=== PATIENT | female | born 1975 | race Caucasian/White ===

== ENCOUNTER 2024-11-22 11:02 | Emergency (ER) | payer OTHER, SELFPAY ==
--- NOTE | ~2024-11-22 | XR_ITS ---
EXAMINATION: XR wrist LT min 3V DATE: 11/22/2024 11:32 INDICATION: Left wrist pain TECHNIQUE: Posteroanterior, ulnar deviation, oblique, and lateral views of the left wrist were obtain ed. COMPARISON: none FINDINGS: Alignment is normal. No fracture. Joint spaces are normal. No cortical erosions. Soft tissues are unr emarkable. IMPRESSION: 1. Negative left wrist radiographs. Reviewed, dictated and finalized at location A.
--- NOTE | 2024-11-22 11:09 | ED_ITS ---
HPI - Extremity Injury (Upper) General Chief Complaint: Extremity Problem,Nontraumatic Stated Complaint: left wrist hurts Time Seen by Provider: 11/22/24 11:08 Source: patient Mode of arrival: ambulatory Limitations: no limitations History of Present Illness HPI narrative: Patient is a 49-year-old female who presents with left wrist pain that started in 14 days ago. Patient was pushing on door when someone else to pushed on door from the other side. Pain increases at night and with use. Denies any numbness, tingling or weakness. Related Data Home Medications ?Medication ?Instructions ?Recorded ?Confirmed ?Last Taken ?Type dextroamphetamine-amphetamine 15 11/22/24 Unknown History mg tablet dextroamphetamine-amphetamine 30 11/22/24 Unknown History mg tablet progesterone micronized 100 mg mg 11/22/24 Unknown History capsule rosuvastatin 5 mg tablet mg 11/22/24 Unknown History testosterone injection 11/22/24 Unknown History venlafaxine 50 mg tablet mg 11/22/24 Unknown History Allergies Allergy/AdvReac Type Severity Reaction Status Date / Time No Known Allergies Allergy Verified 11/22/24 11:25 Review of Systems Review of Systems: All systems reviewed & are unremarkable except as noted in HPI and below Constitutional: Constitutional: Denies body ache(s), Denies fever(s), Denies headache(s), Denies malaise and Denies weakness Eyes: Eyes: Reports no additional eye complaints and Denies loss of vision ENT: Reports system reviewed and no additional complaints, except as documented, Denies otalgia, Denies headache(s), Denies nasal discharge, Denies sinus pain and Denies sore throat Cardiovascular: Cardiovascular: Reports no additional cardiovascular complaints, Denies chest pain, Denies irregular heart rhythm and Denies dyspnea Respiratory: Respiratory: Reports no additional respiratory complaints and Denies dyspnea Gastrointestinal: Gastrointestinal: Reports no additional gastrointestinal complaints, Denies abdominal pain, Denies melena, Denies hematochezia, Denies diarrhea, Denies nausea and Denies vomiting Musculoskeletal: Musculoskeletal: Reports no additional musculoskeletal complaints, Denies back pain, Denies myalgias and Reports arthralgias Integumentary/Breasts: Skin/Breast: Reports system reviewed and no additional complaints, except as docu, Denies pruritus and Denies rash Neurologic: Reports system reviewed and no additional complaints, except as documented, Denies headache(s), Denies loss of vision and Denies weakness Psychiatric: Psychiatric: Reports no additional psychiatric complaints PMFSH Comments At time of signature, agree with nursing past medical, surgical, social and family history. There is no relevant family history pertinent to the presenting complaint. Exam Const: General: cooperative, healthy appearing, comfortable, no acute distress and well nourished Nutritional Appearance: well nourished Orientation/consciousness: patient oriented x3 Limitations: no limitations HENMT: Head: normal to inspection, normocephalic and atraumatic Ears: external ears normal Face/Nose/Sinus: Normal external nose present, normal facial exam and face symmetric Face and sinus: normal facial exam and face symmetric Mouth: Yes lip normal Eyes: General: appearance normal, both eyes and all related structures Alignment and Position: alignment normal and position normal Eyelids: eyelids normal Pupils: Equal, round and reactive pupils present EOM: EOMs intact bilaterally Neck: Neck: normal visual inspection and full ROM Chest: Chest palpation & inspection: normal inspection of the chest Resp: Effort & Inspection: normal respiratory effort and able to speak in complete sentences Auscultation: clear to auscultation bilaterally Cardio: Rate: regular rate Rhythm: regular rhythm Heart sounds: S1 normal heart sound present and S2 normal heart sound present GI: Inspection: normal to inspection Skin: General skin exam: normal color and no rashes or lesions noted Neuro: General: patient oriented x3 and moves all extremities Cranial nerves: Yes Equal, round and reactive pupils present Speech: normal speech Gait exam (Neuro): Normal gait present Extrem: General: normal to inspection, full ROM and no edema Left upper extremity: wrist normal to inspection, tenderness of the distal radius, normal ROM and normal vascular exam; no swelling and no ecchymosis and hand normal to inspection, normal capillary refill, neuromotor exam normal Details: wrist extension normal, thumb opposition normal, thumb IP flexion normal, thumb ADduction normal and fingers 2-5 ABduction normal, neurosensory exam normal Details: radial nerve sensory function normal, ulnar nerve sensory function normal, median nerve sensory function normal and digital nerve sensory function normal, tendon exam normal Location: of all digits Details: extensor tendon, flexor digitorum profundus and flexor digitorum superficialis, vascular exam radial pulse present and normal capillary refill, normal ROM of fingers and no swelling; no tenderness and no ecchymosis Psych: Appearance: grossly normal and well kempt Mental Status: mental status grossly normal Speech and movement: Normal speech and movement present Affect: normal affect Attitude: cooperative Thought process: Normal thought process present Course Course Emergency Course: Patient is aware of diagnosis, understands and agrees to treatment plan. Anticipatory guidance given. Patient agrees to follow-up as directed and is aware of reasons to seek care at the emergency department. Portions of this record may have been created with voice recognition software Level of Care: Express Care Visit Vital Signs Vital signs: Vital Signs Temperature 37.1 C 11/22/24 11:25 Pulse Rate 110 H 11/22/24 11:25 Respiratory Rate 16 11/22/24 11:25 Blood Pressure 147/93 H 11/22/24 11:25 Pulse Oximetry 100 11/22/24 11:25 Temperature 37.1 C 11/22/24 11:25 Pulse Rate 84 11/22/24 12:35 Respiratory Rate 16 11/22/24 11:25 Blood Pressure 147/93 H 11/22/24 11:25 Pulse Oximetry 100 11/22/24 11:25 Reviewed MDM - Extremity Injury (Upper) MDM Narrative Medical decision making narrative: The L wrist is without obvious asymmetry or deformity when compared to the R w rist. NO surface trauma, open wounds, swelling or obvious deformity. No overlying erythema or warmth. slight tenderness on palpation to distal radius.Normal flexion/extension, ulnar/radial deviation. Motor/sensory function of ulnar, radial, median nerves intact. Ulnar and radial pulses intact. Serafin wrap applied Pt well hydrated appearing, in no respiratory distress, hemodynamically stable. Recommend supportive care. The patient is stable at time of discharge the clinical impression was discussed and the patient was given the opportunity to ask questions, which were addressed as completely as possible given the information available at present. Anticipatory guidance and return to care precautions were discussed and the importance of primary care follow-up was stressed and encouraged. The patient voiced understanding of the plan, indications to return, and the need for follow-up. Exam findings show no acute concerns or changes Patient is appropriate for outpatient treatment and follow-up. Differential Diagnosis Differential diagnosis: Likely sprain and strain of wrist, fracture of wrist and other (Tendinitis) Imaging Data Radiologist's impression: EXAMINATION: XR wrist LT min 3V DATE: 11/22/2024 11:32 INDICATION: Left wrist pain TECHNIQUE: Posteroanterior, ulnar deviation, oblique, and lateral views of the left wrist were obtained. COMPARISON: none FINDINGS: Alignment is normal. No fracture. Joint spaces are normal. No cortical erosions. Soft tissues are unremarkable. IMPRESSION: 1. Negative left wrist radiographs. Discharge Plan Discharge Clinical Impression: Left wrist tendonitis Patient Disposition: Home Condition: Stable Instructions: Tendinitis (ED) Additional Instructions: Xray showed no fracture. Minimize activities that aggravate the condition The RICE protocol. Follow the RICE protocol as soon as possible after your injury:. Ice should be immediately applied to keep the swelling down. It can be used for 20 to 30 minutes, three or four times daily. Do not apply ice directly to your skin. Compression dressings, bandages or serafin-wraps will immobilize and support your injured wrist. Elevate your Wrist above the level of your heart as often as possible during the first 48 hours. Medication: Nonsteroidal anti-inflammatory drugs (NSAIDs) such as ibuprofen and naproxen can help control pain and swelling. Because they improve function by both reducing swelling and controlling pain, they are a better option for mild sprains than narcotic pain medicines. Please schedule a follow-up visit with your personal physician for further evaluation and treatment within 1week OR If your symptoms persist, change or worsen significantly before you can contact your personal physician then please, without delay, go to the emergency department for further evaluation. Your blood pressure was elevated above 120/80 today at Urgent Care. This puts you above the threshold for follow up visit with a primary care provider. High blood pressure does not usually cause any symptoms, however it may lead to kidney failure, stroke, heart disease just to name a few if untreated . Many people are anxious when seeing a provider or nurse. As a result, you are not diagnosed with hypertension at this time unless your blood pressure is persistently high at two office visits at least one week apart. Some things that can help lower blood pressure are lifestyle modifications, such as light exercise, decreased salt in diet, and weight loss. It is important to follow up with a PCP about this within 1 week. Patient Language: Maori Prescriptions: No Action dextroamphetamine-amphetamine 30 mg tablet dextroamphetamine-amphetamine 15 mg tablet venlafaxine 50 mg tablet progesterone micronized 100 mg capsule rosuvastatin 5 mg tablet testosterone injection Follow-up/Referrals: Jose Maria Hernandez MD [Physician] - 2 Weeks (wrist pain) Noe Dorsey DO [Primary Care Provider] - 3 Days Time of Disposition: 12:28
[2024-11-22 11:25] VITALS: BP 147/93; PULSE 110; RESP 16; TEMP 37.1; O2SAT 100
[2024-11-22 12:35] VITALS: PULSE 84
== END 2024-11-22 12:35 | disposition home or self-care (01) ==
PROVIDERS: Emergency Provider Nurse Practitioner Family; PCP Internal Medicine
DX: M67.834 Other specified disorders of tendon, left wrist (principal); E78.00 Pure hypercholesterolemia, unspecified; F90.9 Attention-deficit hyperactivity disorder, unspecified type
CPT/HCPCS: 73110; 99203; G0463

== ENCOUNTER 2025-02-13 07:51 | Outpatient (CLI) | payer OTHER, MEDICAID, SELFPAY ==
--- NOTE | ~2025-02-13 | MR_ITS ---
EXAMINATION: MR wrist LT wo/w con DATE: 02/13/2025 09:09 INDICATION: Anterior and lateral left wrist pain post injury 3 months prior TECHNIQUE: Magnetic resonance imaging (MRI) of the left wrist was performed without intravenous contrast. Sequences performed include axial T1-weighted FSE, PD-weighted FS FSE, T2-weighted FS FSE, T1-weighted FS FSE, coronal T2-weighted FS FSE, T1-weighted FSE, T1-weighted FS FSE, sagittal T2-weighted FS FSE, T1- weighted FSE, T1-weighted FS FSE and postcontrast axial, sagittal and coronal T1-weighted FS FSE. COMPARISON: None FINDINGS: Intrinsic ligaments: The scapholunate and lunotriquetral ligaments are normal. Triangular fibrocartilage complex (TFCC): The triangular fibrocartilage including its foveal and styloid attachments as well as the dorsal and volar radioulnar ligaments are normal. The ulnar collateral ligament, ulnotriquetral ligament and meniscal homologue are normal. The extensor carpi ulnaris tendon sheath is normal. Extensor wrist: De Quervain's tenosynovitis with prominent fluid and enhancing synovitis centered along the tendon sheath of the fourth dorsal compartment. Moderate tendinopathy with prominent longitudinal split tearing of the abductor pollicis longus tendon beginning at the level of the radial styloid process and extending to the distal insertion. Fusiform thickening and minimal increased signal consistent with mild tendinopathy without discrete tear of the extensor carpi ulnaris tendon centered at the level of the tip of the ulnar styloid process. Remaining extensor tendons of the wrist are normal. Flexor wrist: The flexor tendons of the wrist are normal. No abnormality in the carpal tunnel with normal median nerve. Guyon's canal: Guyon's canal including the ulnar nerve and artery are normal. Bones/other: Normal marrow signal. No fracture, erosions, avascular necrosis or abnormal marrow replacing process. Joint spaces are normal with no focal cartilage defects appreciated. Siphon the enhancing tenosynovitis, no other abnormal enhancing lesions identified. IMPRESSION: 1. Prominent the cord maintains tenosynovitis along with moderate tendinopathy and prominent longitudinal split tearing of the abductor pollicis longus tendon. 2. Mild tendinopathy without discrete tear of the extensor carpi ulnaris tendon. Reviewed, dictated and finalized at location A. PLATER IMPRESSION: 1. Prominent the cord maintains tenosynovitis along with moderate tendinopathy and prominent longitudinal split tearing of the abductor pollicis longus tendon . 2. Mild tendinopathy without discrete tear of the extensor carpi ulnaris tendon .
--- OUTSIDE RECORDS SUMMARY | 2025-02-13 07:56 | XMS_ITS | Encounter Summary ---
Author Organization [facility] Address [address] [place] [address] Care Team Providers Care Boathouse Keeper Name Role Phone Octavio Jacobs DO Primary Care Provider [phone] Encounter Details Date Type Department Care Team (Late st Contact Info) Description 05/04/2016 Abstract [facility] [address] [address] [place] [id number] [facility] [address] [place] [address] Social History Tobacco Use Types Packs/Day Years Used Date Smoking Tobacco: Never Alcohol Use Standard Drinks/Week Comments Yes 0 (1 standard drink = 0.6 oz pur e alcohol) occasional use Comments Unknown Sex and Gender Information Value Date Recorded Sex Assigned at Not on file Legal Sex Female 4:46 AM COLOR TELEVISION CONSOLE MONITOR Gender Identity Not on file Sexual Orientation Not on file documented as of this encounter Plan of Treatment Not on file documented as of this encounter Visit Diagnoses Not on filedocumented in this encounter Additional Health Concerns Infection Onset Date Last Indicated Resolved Time R/O COVID-19 02/23/2020 02/23/2020 02/25/2020 1:45 PM COLOR TELEVISION CONSOLE MONITOR COVID-19 02/23/2020 02/23/2020 03/24/2020 1:18 AM COLOR TELEVISION CONSOLE MONITOR R/O COVID-19 04/10/2021 04/10/2021 04/10/2021 7:17 PM COLOR TELEVISION CONSOLE MONITOR documented as of this encounter Care Teams Boathouse Keeper Relationship Specialty Start Date End Date Octavio Jacobs DO PCP - General Family Practice 05/04/16 documented as of this encounter
--- OUTSIDE RECORDS SUMMARY | 2025-02-13 07:56 | XMS_ITS | Clinical Summary ---
Author Organization [facility] Address [address] [facility] [address] [place] [address] Phone Care Team Providers Care Radiology Technician Name Role Phone Octavio Jacobs Primary Care Provider [phone] Allergies Active Allergy Reactions Criticality Noted Date Comments Latex Rash Low 05/04/2016 Medications metoprolol tartrate (LOPRESSOR) 25 mg tablet Take 25 mg by mouth daily. Active escitalopram oxalate (LEXAPRO) 10 mg tablet Take 20 mg by mouth daily. Active ketorolac tromethamine (TORADOL) 10 mg tablet Take 1 Tablet (10 mg) by mouth every 6 hours as needed for Pain. 12 Tablet 1 Active diazePAM (VALIUM) 5 mg tabletIndications :Spinal stenosis, unspecified spinal region Take 1 Tablet (5 mg) by mouth every 8 hours as needed for Spasm. 10 Tablet 1 Active amphetamine-dextr oamphetamine (ADDERALL XR) 20 mg Extended Release 24 hour capsule Take 1 Capsule (20 mg) by mouth daily in the morning. 30 Capsule 03/14/2023 2:04 PM AUDIT SPEC 3 Active Active Problems Problem Noted Date Diagnosed Date Benign hypertension 05/16/2016 BHUMIKA on CPAP 05/16/2016 Anxiety 05/16/2016 Gastroesophageal reflux disease without esophagi tis 05/16/2016 Immunizations Immunization Administration Dates Next Due Influenza Seasonal Unspecified Formulation IM Family History Medical History Relation Name Comments Heart Disease Father Cancer Mother Heart Disease Mother Relation Name Status Comments Father Alive Mother Alive Social History Tobacco Use Types Packs/Day Years Used Date Smoking Tobacco: Never Alcohol Use Standard Drinks/Week Comments Yes 0 (1 standard drink = 0.6 oz pur e alcohol) occasional use Comments No Sex and Gender Information Value Date Recorded Sex Assigned at Not on file Legal Sex Female 4:46 AM AUDIT SPEC Gender Identity Not on file Sexual Orientation Not on file Last Filed Vital Signs Vital Sign Reading Time Taken Comments Blood Pressure 140/92 08/05/2020 8:30 PM CDT Pulse 83 08/05/2020 8:30 PM CDT Temperature 36.1 C (96.9 F) 08/05/2020 7:04 PM CDT Respiratory Rate 15 08/05/2020 7:04 PM CDT Oxygen Saturation 100% 08/05/2020 8:30 PM CDT Inhaled Oxygen Concentration - - Weight 101.2 kg (223 lb) 08/05/2020 7:04 PM CDT Height 167.6 cm (5' 6) 08/05/2020 7:04 PM CDT Body Mass Index 35.99 08/05/2020 7:04 PM CDT Plan of Treatment Health Maintenance Due Date Last Done Comments DTAP/TDAP/TD VACCINES (1 - Tdap) 1996 HEPATITIS B VACCINES (1 of 3 - 19+ 3-dose series) 1996 HPV/Cotest (21-29) 1998 CERVICAL CANCER SCREENING 09/18/2007 HPV/Cotest (30-65) 09/18/2007 PAP SMEAR 09/18/2007 BREAST CANCER SCREENING 2017 COLORECTAL SCREENING 2022 Colorectal Cancer Screening 2022 FIT-DNA Q 3 years 2022 FIT/FOBT Q 1 year 2022 Flex Sig/CT Colonography Q 5 years 2022 Preventative Visit- Commercial 04/15/2024 12/18/2019 , 11/21/2016 INFLUENZA VACCINE (#1) 2024 02/06/2021, 2019 Medical Devices Implanted Type Area Library Information Technician Device Identifier Shelf Expiration Date Model / Serial / Lot Seamguard Endogia 60 Prpl [id number] - [id number] Implanted:Qty : 2 on 05/16/2016 by Grant Aguilar MD at [facility] Biological N/A: Abdomen [employer] 02/12/2019 [id number] / / [id number] Seamguard Endogia 60 Blck [id number] - [id number] Implanted:Qty : 2 on 05/16/2016 by Grant Aguilar MD at [facility] Biological N/A: Abdomen [employer] 12/13/2018 [id number] / / [id number] Mirena Description:placed 2015 Insurance RX [employer] (INTERNAL) [facility] Internal Plans RX [employer] Express Advance Directives For more information, please contact: [phone] * Full Code (Latest Code Status on File) Date Activated Date Inactivated Comments 05/16/2016 9:43 AM 05/17/2016 3:00 PM * Full Code Date Activated Date Inactivated Comments 05/16/2016 5:45 AM 05/16/2016 9:43 AM * Full Code Date Activated Date Inactivated Comments 05/04/2016 5:58 AM 05/04/2016 9:53 AM Care Teams Radiology Technician Relationship Specialty Start Date End Date Octavio Jacobs DO PCP - General Family Practice 05/04/16
--- OUTSIDE RECORDS SUMMARY | 2025-02-13 07:56 | XMS_ITS | Encounter Summary ---
Author Organization [facility] Address [address] [place] [address] Care Team Providers Care Operations Lieutenant Name Role Phone Octavio Jacobs Primary Care Provider [phone] Reason for Visit * Reason Onset Date Comments Follow Up 05/07/2016 EGD biopsy done on 05/04/16 positive for H pylori. RX from Dr. Aguilar for 10 day course of Omeprazole 20 mg twice daily, Flagyl 500 mg three times daily and Clarithromycin 500 mg twice daily. Spoke with pt to discuss results and treatment . Denies allergies. Pharmacy is [facility] [phone]. RX called to [facility] Encounter Details Date Type Department Care Team (Late st Contact Info) Description 05/07/2016 Telephone [facility] [address] [address] Jill Pritchard, TYSHAWN Follow Up (EGD biopsy done on 05/04/16 positive for H pylori. RX from Dr. Aguilar for 10 day course of Omeprazole 20 mg twice daily, Flagyl 500 mg three times daily and Clarithromycin 500 mg twice daily. Spoke with pt to discuss results and treatment . Denies allergies. Pharmacy is [facility] [phone]. RX called to [facility]) Social History Tobacco Use Types Packs/Day Years Used Date Smoking Tobacco: Never Alcohol Use Standard Drinks/Week Comments Yes 0 (1 standard drink = 0.6 oz pur e alcohol) occasional use Comments Unknown Sex and Gender Information Value Date Recorded Sex Assigned at Not on file Legal Sex Female 4:46 AM ADULT CAREGIVER Gender Identity Not on file Sexual Orientation Not on file documented as of this encounter Plan of Treatment Not on file documented as of this encounter Visit Diagnoses Not on filedocumented in this encounter Additional Health Concerns Infection Onset Date Last Indicated Resolved Time R/O COVID-19 02/23/2020 02/23/2020 02/25/2020 1:45 PM ADULT CAREGIVER COVID-19 02/23/2020 02/23/2020 03/24/2020 1:18 AM ADULT CAREGIVER R/O COVID-19 04/10/2021 04/10/2021 04/10/2021 7:17 PM ADULT CAREGIVER documented as of this encounter Care Teams Operations Lieutenant Relationship Specialty Start Date End Date Octavio Jacobs DO PCP - General Family Practice 05/04/16 documented as of this encounter
--- OUTSIDE RECORDS SUMMARY | 2025-02-13 07:56 | XMS_ITS | Clinical Summary ---
Author Organization [address] Address [address] [place] [id number] Care Team Providers Care Retail Customer Service Representative Name Role Phone RaymonNoe sepulveda DO Primary Care Provider Allergies Active Allergy Reactions Criticality Noted Date Comments Latex Rash Medium 05/04/2016 Had rash on contact with gloves as child Medications sertraline (ZOLOFT) 100 mg tabletIndications :Anxiety TAKE 1 TABLET(100 MG) BY MOUTH DAILY 90 tablet 3 Active metoprolol XL (TOPROL-XL) 50 mg extended release tabletIndications :Benign hypertension TAKE 1 TABLET(50 MG) BY MOUTH DAILY 90 tablet 3 Active cholecalciferol (VITAMIN D-3) 1,000 unit capsule 1 capsule (1,000 Units total) daily Active dextroamphetamine -amphetamine (ADDERALL) 15 mg tablet 0 4 Active dextroamphetamine -amphetamine (ADDERALL) 30 mg tablet 0 4 Active omega 6-qnq-aut-fish oil (Fish OiL) 1,000 (120-180) mg capsule 1 capsule (1,000 mg total) daily Active Hospital, Clinic, or Other Facility Administered Medication Ordered Dose Route Frequency Start Date End Date Status levonorgestreL (MIRENA) 21 mcg/24 hours (8 yrs) 52 mg IUDIndications:Preg harpreet Contraception intrauterine Continuous (implanted device) 09/26/2022 8 Active Active Problems Problem Noted Date Diagnosed Date Annual physical exam 09/27/2022 Assessment & Plan (09/27/2022 1:43 PM CDT): Reviewed past and current medical history, surgical history, social history, family history, current medications, and allergies. A ROS and PE were performed. Medications and labs were ordered and referrals were made. Discussed screening colonoscopy, well woman exam/cervical cancer screening, screening mammogram, monthly breast self- exams, bone density testing, and recommended immunizations. Patient will follow-up in 4 weeks for further evaluation and management or sooner if needed. Chronic insomnia 09/27/2022 Assessment & Plan (09/28/2022 2:10 PM CDT): Chronic, stable, uncontrolled-discussed pharmacological management versus OTC meds, continued on melatonin. SOB (shortness of breath) 09/27/2022 Assessment & Plan (09/28/2022 2:13 PM CDT): Chronicity and stability unknown-referral made Cardiology for further evaluation and management of shortness of breath and perceived poor endurance. Vitamin D deficiency 09/27/2022 Assessment & Plan (09/28/2022 2:13 PM CDT): Chronicity and stability unknown-continued on vitamin D3 2000 IU daily with a meal. Ordered vitamin-D 25 OH. Anemia, unspecified 09/27/2022 Assessment & Plan (09/28/2022 2:07 PM CDT): Chronic, stable-informed multivitamin with iron. Will monitor periodically. Metrorrhagia 06/14/2022 Assessment & Plan (09/28/2022 2:12 PM CDT): Chronic, improved with IUD, with recent removal and reinsertion on 09/26/2022-encouraged follow-up with food court team member as recommended. Assessment & Plan (06/14/2022 2:48 PM SUPERINTENDENT PIER): Chronicity and stability unknown-ordered FSH, LH, estradiol level, & TSH level. Referral made to gynecology for well-woman exam. Lipid screening 06/14/2022 Assessment & Plan (06/14/2022 2:41 PM SUPERINTENDENT PIER): Ordered lipid panel. Bariatric surgery status 06/14/2022 Assessment & Plan (09/28/2022 2:08 PM CDT): Reviewed prior lab work, zinc was omitted due to not enough blood taken for testing. Assessment & Plan (06/14/2022 2:45 PM SUPERINTENDENT PIER): Ordered CBC, ferritin level, iron profile, B12 level, folate, copper, zinc, CMP, hemoglobin A1c, vitamin-D, PTH, and lipid panel. Encounter for well woman exa m with routine gynecological exam 06/14/2022 Assessment & Plan (06/14/2022 2:42 PM SUPERINTENDENT PIER): Referral made per patient request to food court team member for well-woman exam. Encounter for screening mamm ogram for malignant neoplasm of breast 06/14/2022 Assessment & Plan (06/14/2022 2:42 PM SUPERINTENDENT PIER): Ordered screening mammogram. Need for vaccination 06/14/2022 Assessment & Plan (06/14/2022 2:40 PM SUPERINTENDENT PIER): Influenza vaccine given. Current mild episode of emile r depressive disorder without prior episode 06/14/2022 Assessment & Plan (09/28/2022 2:11 PM CDT): Chronic, controlled per patient report, PHQ-9=8-continued on sertraline, declined increase in dose. Informed suicidal ideation or thoughts of harming self or others, to go to ER and/or call [phone] for assistance. Assessment & Plan (06/14/2022 2:48 PM SUPERINTENDENT PIER): Chronic, uncontrolled on medication, however has been taking half recommended dose for several months due to limited supply, increased to full tablet 1 week ago-continued on sertraline 100 mg daily. Recommended follow-up in 4 weeks. PHQ- 9=14. Anxiety 05/16/2016 Assessment & Plan (09/28/2022 2:11 PM CDT): Chronic, stable, controlled per patient report with medication, SEVERO-7=15-continued on sertraline, declined increase in dose. Informed suicidal ideation or thoughts of harming self or others, to go to ER and/or call [phone] for assistance. Assessment & Plan (06/14/2022 2:46 PM SUPERINTENDENT PIER): Chronic, uncontrolled on medication, however has been taking half recommended dose for several months due to limited supply, increased to full tablet 1 week ago-continued on sertraline 100 mg daily. Recommended follow-up in 4 weeks. SEVERO--9=17. Assessment & Plan (03/05/2018 2:26 AM SUPERINTENDENT PIER): Continue home sertraline Benign hypertension 05/16/2016 Assessment & Plan (09/28/2022 2:08 PM CDT): Chronic, stable, controlled with medication-continued on metoprolol XL. Assessment & Plan (06/14/2022 2:44 PM SUPERINTENDENT PIER): Chronic, with elevated systolic (140), admits to being nervous establishing with a new provider-continued on metoprolol XL. Ordered CMP. Recommended follow-up in 4 weeks. Assessment & Plan (03/05/2018 2:22 AM SUPERINTENDENT PIER): BP 130s/70s on admission -Continue home Metoprolol XL 50 mg qday -If BP rises then would switch Meto to Amlodipine or HCTZ given BB are not first line anti-hypertensives and she does not have known CAD BHUMIKA on CPAP 05/16/2016 Assessment & Plan (09/28/2022 2:12 PM CDT): Chronicity and stability unknown, has not worn CPAP i n year since losing weight-offered referral to sleep management, not interested at this time. Assessment & Plan (03/05/2018 2:22 AM SUPERINTENDENT PIER): Prior history before gastric sleeve operation -BHUMIKA screening Resolved Problems Problem Noted Date Diagnosed Date Resolved Date Encounter to establish care 06/14/2022 09/27/2022 Assessment & Plan (06/14/2022 2:42 PM SUPERINTENDENT PIER): Reviewed past and current medical history, surgical history, social history, family history, current medications, and allergies. A ROS and PE were performed. Medications were refilled, labs were ordered, and referrals were made. Discussed screening colonoscopy, well woman exam/cervical cancer screening, screening mammogram, monthly breast self-exams, and recommended immunizations. Patient will follow-up in 4 weeks for annual exam, sooner if needed. Hypomagnesemia 06/14/2022 09/28/2022 Assessment & Plan (06/14/2022 2:41 PM SUPERINTENDENT PIER): Chronicity and stability unknown-ordered magnesium level. Pancreatitis 03/05/2018 06/14/2022 Assessment & Plan (03/05/2018 2:25 AM SUPERINTENDENT PIER): Presenting with 5 days of epigastric pain that radiates to her back, nausea, and vomiting consistent with pancreatitis. Lipase was normal at 29, but clinical history/exam is consistent with mild case -Unable to tolerate PO intake -RUQ with gallbladder sludge and large gallstone, but no acute cholecystitis -CT abdomen/pelvis with pancreatitis and cholelithiasis, no biliary dilatation -LFTs within normal limits -Pancreatitic etiology is likely secondary to gallstones. No history of alcohol use or recent medication changes -Would benefit from outpatient general surgery follow-up for elective cholecystectomy -IV fluids, pain control and anti-emetics for now -NPO and ADAT -Scheduled Tylenol, oxycodone and morphine PRN for pain Gastroesophageal reflux dise ase without esophagitis 05/16/2016 06/14/2022 Encounters Date Type Department Care Team Description 01/19/2025 1:20 PM CDT - 01/19/2025 11:59 PM CDT Hospital Encounter [address] [address] Pain in left wrist Discharge Disposition: Discharge to home or self care from Last 3 Months Immunizations Immunization Administration Dates Next Due Influenza, Quadrivalent, Spl it, Preservative Free, Intramuscular 06/14/2022,12/18/2019 Influenza, Trivalent, IM (MDV) 02/06/2021 Influenza, Trivalent, Preser vative Free, Intramuscular 01/23/2017 Pfizer SARS-CoV-2 Monovalent Vaccination (12+ Yrs) PURPLE 02/06/2021,05/25/2020,05/05/2020 Tdap 08/14/2019 Surgical History Surgery Date Site/Laterality Comments BARIATRIC SURGERY 04/15/2014 - 04/14/2015 N/A gastric sleeve INDUCED Medical History Medical History Date Comments Hypertension Obesity Depression Pancreatitis 03/05/2018 Gastroesophageal reflux disease without esophagi tis 05/16/2016 Abnormal Pap smear of cervix HPV (human papilloma virus) infection Hypomagnesemia 06/14/2022 Family History Medical History Relation Name Comments Coronary artery disease Father Heart disease Father Hypertension Father Coronary artery disease Mother Heart attack Mother Heart disease Mother Hypertension Mother Throat cancer Mother Breast cancer Neg Hx Ovarian cancer Neg Hx Thyroid cancer Neg Hx Uterine cancer Neg Hx Relation Name Status Comments Father Alive Mother Alive Social History Tobacco Use Types Packs/Day Years Used Date Smoking Tobacco: Never Smokeless Tobacco: Never Tobacco Cessation:Counseling Given: Not Answered Alcohol Use Standard Drinks/Week Comments No 0 (1 standard drink = 0.6 oz pur e alcohol) AUDIT-C Answer Date Recorded Q1: How often do you have a drink containing alc ohol? Never 06/14/2022 Average Number of Drinks Not on file 023 Frequency of Binge Drinking Not on file 05/2022 PHQ-2 Answer Date Recorded PHQ-2 Total Score (If total score is 3 or more points, staff should administer the PHQ-9) 0 09/27/2022 Comments No Sex and Gender Information Value Date Recorded Sex Assigned at Not on file Legal Sex Female 7:34 PM SUPERINTENDENT PIER Gender Identity Female 06/27/2022 11:49 AM CDT Sexual Orientation Straight 06/27/2022 11 :49 AM CDT Obstetrics History Para Term AB IAB SAB Ectopic Multiple Livin g Live Births 1 0 0 1 Date Outcome GA Total Labor Labor/2nd/3rd Weight Sex Type Anes PTL Justine A1 A5 Name Clin AB Last Filed Vital Signs Vital Sign Reading Time Taken Comments Blood Pressure 122/83 06/03/2024 7:43 PM SUPERINTENDENT PIER Pulse 87 06/03/2024 7:43 PM SUPERINTENDENT PIER Temperature 36.8 C (98.2 F) 06/03/2024 7:43 PM SUPERINTENDENT PIER Respiratory Rate 20 06/03/2024 7:43 PM SUPERINTENDENT PIER Oxygen Saturation 99% 06/03/2024 7:43 PM SUPERINTENDENT PIER Inhaled Oxygen Concentration - - Weight 99.3 kg (218 lb 14.4 oz) 09/27/2022 1:15 PM CDT Height 169 cm (5' 6.54) 09/27/2022 1:15 PM CDT Body Mass Index 34.77 09/27/2022 1:15 PM CDT Plan of Treatment Health Maintenance Due Date Last Done Comments Colon Cancer Screening-Colonoscopy 1975 Hepatitis C Screening 1975 Hepatitis B Screening 09/18/1995 Breast Cancer Screening-Mammogram 09/08/2023 09/07/2022 Depression Screening 09/28/2023 09/27/2022, 09/27/2022, 06/14/2022, Additional history exists Regular Well Visit/Exam 18-64 09/28/2023 09/27/2022, 09/12/2022, 12/18/2019, Additional history exists Covid-19 Vaccine ( season) 2024 02/06/2021, 05/25/2020, 05/05/2020 Influenza Vaccine (#1) 2024 3, 02/06/2021, 12/18/2019, Additional history exists Cervical Cancer Screening 09/13/20272022, 12/18/2019, 11/21/2016 DTaP/Tdap/Td Vaccine (2 - Td or Tdap) 08/13/2029 08/14/2019 Pneumococcal vaccine <65 Aged Out No longer eligible based on patient's age to complete this topic Procedures Procedure Name Priority Date/Time Associated Diagnosis Comments US UPPER EXTREMITY LEFT LIMITED Schedule Routine, Read Routine (OP Routine) 01/19/2025 1:52 PM CDT Pain in left wrist PAP AND HIGH RISK HPV, REFLEX TO GENOTYPING Routine 09/12/2022 8:59 AM CDT Well woman exam SCREENING MAMMOGRAM BILATERAL W RAMSEY Schedule Routine, Read Routine (OP Routine) 09/07/2022 8:14 AM CDT Screening mammogram, encounter for from Last 3 Months or Most Recently Relevant to Health Maintenance Results * US Upper Extremity Left Limited (01/19/2025 1:52 PM CDT) Anatomical Region Laterality Modality Upper Extremities Left Ultrasound 01/22/2025 11:1 4 AM CDT Narrative 01/22/2025 11:17 AM CDT EXAM DESCRIPTION: US UPPER EXTREMITY LEFT LIMITED REASON FOR STUDY: Pain in left wrist after injury 2 weeks ago, possible ruptured ganglion cyst. TECHNIQUE: A Dynamic assessment was performed of the left wrist by the butcher's assistant, with selected grayscale and color Doppler images acquired and recorded in PACS. COMPARISON: None. FINDINGS: If the area of interest corresponding to the area of palpable abnormality there is an ovoid mildly complex mass, this was not measured by the butcher's assistant. On retrospective review this is measured at approximately 2.1 x 0.8 cm by 1.6 cm. Peripherally there is some areas where this is anechoic, centrally this is relatively isoechoic. The through properties are difficult to assess due to location. This mass is just deep to the skin surface by approximately 1.5 mm. There is peripheral vascular flow with a least 1 speckled vascular flow seen within the substance of this collection on image 3 of 11 but question whether this may be artifactual. Spectral tracing was not performed. There also appears to be associated fluid along the tendon sheath on images 7 through 10. IMPRESSION: 1. Complex mass in the area of interest corresponding to the area of palpable abnormality. This is nonspecific, may be a hematoma. There is some peripheral vascular flow but question whether this may be artifactual. If further assessment were needed, could consider a MRI with contrast. 2. Fluid along the tendon sheath of the wrist. THIS IS AN ELECTRONICALLY VERIFIED FINAL REPORT 01/22/2025 11:17 AM - Electronically signed by Eugenio Smith M.D. T: Report ID: [id number] Reading Location: [id number] Procedure Note Eugenio Smith MD - 01/22/2025 EXAM DESCRIPTION: US UPPER EXTREMITY LEFT LIMITED REASON FOR STUDY: Pain in left wrist after injury 2 weeks ago, possible ruptured ganglion cyst. TECHNIQUE: A Dynamic assessment was performed of the left wrist by the butcher's assistant, with selected grayscale and color Doppler images acquired and recorded in PACS. COMPARISON: None. FINDINGS: If the area of interest corresponding to the area of palpable abnormality there is an ovoid mildly complex mass, this was not measuredby the butcher's assistant. On retrospective review this is measured atapproximately 2.1 x 0.8 cm by 1.6 cm. Peripherally there is some areas where this is anechoic, centrally this is relatively isoechoic. The through propertiesare difficult to assess due to location. This mass is just deep to the skin surface by approximately 1.5 mm. There is peripheral vascular flow with a least 1 speckled vascular flow seen within the substance of thiscollection on image 3 of 11 but question whether this may be artifactual. Spectraltracing was not performed. There also appears to be associated fluid along thetendon sheath on images 7 through 10. IMPRESSION: 1. Complex mass in the area of interest corresponding to the area of palpable abnormality. This is nonspecific, may be a hematoma. There issome peripheral vascular flow but question whether this may be artifactual. If further assessment were needed, could consider a MRI with contrast. 2. Fluid along the tendon sheath of the wrist. THIS IS AN ELECTRONICALLY VERIFIED FINAL REPORT 01/22/2025 11:17 AM - Electronically signed by Eugenio Smith M.D. T: Report ID: [id number] Reading Location: [place] [address] us Yenny Asencio HEALTH ASSISTANT IMG US PROCEDURES Final Resu lt * Pap and High Risk HPV, reflex to Genotyping (09/12/2022 8:59 AM CDT) Thin prep (Pap test) 09/12/2022 8:59 AM CDT 09/12/2022 8:59 AM CDT Narrative PATHOLOGY [facility] - 09/14/2022 2:53 PM CDT [facility] Department of Pathology [address] [place] [address] Final Report with Addendum Note to Patients: This report may contain a detailed description of human tissue sent by a health care provider to the laboratory for pathologic evaluation. The content of this report is essential for diagnosis and may provide important critical findings. This information may be unfamiliar to patients to review without a medical professional present. It is advised that the patient review this report in the presence of a health care provider who can answer questions and explain the details. Patient Name: PAMELA TOLBERT Address: [address] [place] [address] Gender: F : 1975 (Age: 46) Service: Location: N : [id number] [facility] #: [id number] Patient Type: [facility] SPECIMEN Taken: 09/12/2022 Received: 09/12/2022 Accessioned:: 09/13/2022 Reported: 09/14/2022 Physician(s): Vicky Kauffman M.D. [facility] Diagnosis: SOURCE OF SPECIMEN SCREENING THIN PREP IMAGED PAP w/ HPV: STATEMENT OF ADEQUACY - Satisfactory for evaluation; endocervical/transformation zone component present GENERAL CATEGORIZATION: - Negative for intraepithelial lesion or malignancy BREEZY Hicks(ASCP) Report Electronically Reviewed and Signed Out By REBECA HicksASC) 09/14/2022 14:53:24Addenda: HPV Test Interpretation NEGATIVE for types 16, 18, 31, 33, 35, 39, 45, 51, 52, 56, 58, 59, 66 and 68. Test performed utilizing Gen-Probe Aptima assay. BREEZY Connor(ASCP)Report Electronically Reviewed and Signed Out By REBECA ConnorASC) 09/14/2022 10:09:34 Specimen(s) Received: A: SCREENING THIN PREP IMAGED PAP w/ HPV Clinical History: Last Menstrual Period: 08/31/22 The Pap test is a screening test used to aid in the detection of cervical cancer and its precursors. It should not be the sole means by which malignant and premalignant lesions are diagnosed. Both false negative and false positive results may occur. It also has poor sensitivity for the detection of endometrial lesions and should not be used to evaluate suspected endometrial abnormalities. For these reasons it is most important to obtain Pap tests at regular intervals. The performance characteristics of some immunohistochemical stains, fluorescence in-situ hybridization tests and immunophenotyping by flow cytometry cited in this report (if any) were determined by the Surgical Pathology Department at [facility] as part of an ongoing quality assurance assistant program and in compliance with federally mandated regulations drawn from the Clinical Laboratory Improvement Act of 1988 (CLIA '88). Some of these tests rely on the use of analyte specific reagents and are subject to specific labeling requirements by the US Food and Drug Administration. Such diagnostic tests may only be performed in a facility that is certified by the Department of Health and Human Services as a high complexity laboratory under CLIA '88. The FDA has determined that such clearance or approval is not necessary. This test is used for clinical purposes. It should not be regarded as investigational or for research. Nevertheless, federal rules concerning the medical use of analyte specific reagents require that the following disclaimer be attached to the report: This test was developed and its performance characteristics determined by the Surgical Pathology Department [facility]. It has not been cleared or approved by the U. S. Food and Drug Administration. Vicky Kauffman MD LAB CYTOLOGY ORDERABLES F inal Result PATHOLOGY [facility] * Screening Mammogram Bilateral W Ramsey (09/07/2022 8:14 AM CDT) Anatomical Region Laterality Modality Breast Bilateral Mammography 09/07/2022 8:18 AM CDT Impressions 09/07/2022 8:18 AM CDT There is no mammographic evidence of malignancy. A 1 year screening mammogram is recommended. BI-RADS: 1 - Negative. The patient has been or will be contacted. The patient will be entered into a reminder system with a target due date of 1 year for her next mammogram. Electronically signed by: Mandy Thomas M.D. Narrative 09/07/2022 8:18 AM CDT EXAMINATION: SCREENING MAMMOGRAM BILATERAL W RAMSEY ORDERING HEALTHCARE PROVIDER: SELF SCREENING MAMMOGRAM HISTORY: Routine screening mammography. COMPARISON: Baseline study TECHNIQUE: CC and MLO views of the bilateral breasts were obtained with digital technique using breast tomosynthesis with C view. Computer aided detection was utilized. FINDINGS: DENSITY: There are scattered fibroglandular elements in the bilateral breasts. BREASTS: There are no suspicious masses, suspicious calcifications, or other suspicious findings in either breast. There has been no suspicious interval change. us Self Screening Mammogram IMG MAMMO PROCEDURES Fi nal Result from Last 3 Months or Most Recently Relevant to Health Maintenance Insurance [facility] [employer] Address: [facility] [id number] [place] [address] Advance Directives For more information, please contact: [phone] * Full Code (Latest Code Status on File) Date Activated Date Inactivated Comments 03/05/2018 2:09 AM 03/05/2018 10:20 PM Care Teams Retail Customer Service Representative Relationship Specialty Start Date End Date Noe Dorsey [address] [facility] [place] [address] PCP - General Internal Medicine 01/12/25
--- OUTSIDE RECORDS SUMMARY | 2025-02-13 07:56 | XMS_ITS | Encounter Summary ---
Author Organization [facility] Address [address] [place] [address] Care Team Providers Care Actuarial Director Name Role Phone Octavio Jacobs DO Primary Care Provider [phone] Encounter Details Date Type Department Care Team (Late st Contact Info) Description 05/25/1999 Outpatient Historical [facility] Kem Prakash Social History Tobacco Use Types Packs/Day Years Used Date Smoking Tobacco: Never Assessed Comments Unknown Sex and Gender Information Value Date Recorded Sex Assigned at Not on file Legal Sex Female 4:46 AM PRE CODER Gender Identity Not on file Sexual Orientation Not on file documented as of this encounter Plan of Treatment Not on file documented as of this encounter Visit Diagnoses Not on filedocumented in this encounter Additional Health Concerns Infection Onset Date Last Indicated Resolved Time R/O COVID-19 02/23/2020 02/23/2020 02/25/2020 1:45 PM PRE CODER COVID-19 02/23/2020 02/23/2020 03/24/2020 1:18 AM PRE CODER R/O COVID-19 04/10/2021 04/10/2021 04/10/2021 7:17 PM PRE CODER documented as of this encounter Care Teams Actuarial Director Relationship Specialty Start Date End Date Octavio Jacobs DO PCP - General Family Practice 05/04/16 documented as of this encounter
== END 2025-02-13 07:52 | disposition home or self-care (01) ==
LOC: CHSIMG 07:54
PROVIDERS: PCP Internal Medicine; Visit Provider Clinical Nurse Specialist
DX: M25.532 Pain in left wrist (principal); R93.89 Abnormal findings on diagnostic imaging of other specified body structures; M65.841 Other synovitis and tenosynovitis, right hand; S66.812A Strain of other specified muscles, fascia and tendons at wrist and hand level, left hand, initial encounter
CPT/HCPCS: 73223; A9577